=== PATIENT | male | born 1975 | race Caucasian/White ===

== ENCOUNTER 2016-09-19 22:38 | Emergency (ER) | payer OTHER ==
[~2016-09-19] VITALS: Ht 170.2 cm; Wt 89.1 kg
[2016-09-19 22:39] VITALS: BP 124/85
[2016-09-19] MEDS ORDERED: ACETAMINOPHEN 325 MG TABLET PO ONE (23:30)
[2016-09-19] MEDS ORDERED: IBUPROFEN 200 MG TABLET PO ONE (23:30)
== END 2016-09-20 00:12 | disposition home or self-care (01) ==
LOC: ED 23:59
DX: K64.4 Residual hemorrhoidal skin tags (principal)
CPT/HCPCS: 99283

== ENCOUNTER 2018-07-22 12:47 | Emergency (ER) | payer MEDICAID, OTHER ==
[~2018-07-22] VITALS: Ht 170.2 cm; Wt 87.5 kg
[2018-07-22 12:57] VITALS: BP 128/81
== END 2018-07-22 13:56 | disposition home or self-care (01) ==
LOC: ED 13:50
DX: J01.90 Acute sinusitis, unspecified (principal); I10 Essential (primary) hypertension
CPT/HCPCS: 99283

== ENCOUNTER 2019-03-20 13:06 | Emergency (ER) | payer MEDICAID ==
[~2019-03-20] VITALS: Ht 170.2 cm; Wt 86.0 kg
[2019-03-20 13:22] VITALS: BP 105/81
[2019-03-20] MEDS ORDERED: ATOR20TA37 PO (13:38)
[2019-03-20] MEDS ORDERED: METF10007 PO (13:38)
[2019-03-20] MEDS ORDERED: BUPR200T31 PO (13:38)
[2019-03-20] MEDS ORDERED: CIPR500T3 PO (13:38)
--- NOTE | 2019-03-20 13:41 | NUR ---
PT HAS CO OF LEFT EYE SWELLING W REDNESS. PT STATES HE FEELS LIKE THERE IS SOMETHING BEHIND IT. ALSO HAS HEADACHES FOR PAST WEEK. STATES HE WENT TO EYE DR 2 WEEKS AGO FOR SCRATCH IN EYE. MD AT BEDSIDE.
--- NOTE | 2019-03-20 14:04 | NUR ---
LAB AT BEDSIDE. PATIENT RESTING, CALL LIGHT IN REACH.
[2019-03-20 14:13] LABS: BASOPHILS # (AUTO) 0.09 x10^3/uL (0-0.1); BASOPHILS % (AUTO) 1 % (0-1); EOSINOPHILS # (AUTO) 0.13 x10^3/uL (0-0.4); EOSINOPHILS % (AUTO) 2 % (1-7); LYMPHOCYTES # (AUTO) 2.54 x10^3/uL (1-3.4); LYMPHOCYTES % (AUTO) 29 % (22-44); MD NO; MEAN CORPUSCULAR HEMOGLOBIN 30.2 pg (27.5-34.5); MEAN CORPUSCULAR VOLUME 91.6 fL (81-97); MEAN PLATELET VOLUME 7.7 fL (7.4-10.4); MONOCYTES # (AUTO) 0.71 x10^3/uL (0.2-0.8); MONOCYTES % (AUTO) 8 % (2-9); NEUTROPHILS # (AUTO) 5.22 x10^3/uL (1.8-6.8); NEUTROPHILS % (AUTO) 60 % (42-75); PLATELET COUNT 424 x10^3/uL (130-400); RED BLOOD COUNT 5.15 x10^6/uL (4.38-5.82); RED CELL DISTRIBUTION WIDTH 12.8 % (9.4-14.8)
[2019-03-20 14:26] LABS: ALBUMIN 3.8 g/dL (3.4-5.0); ANION GAP 4 mmol/L (5-15); CALCIUM 8.9 mg/dL (8.5-10.1); CHLORIDE 108 mmol/L (98-107)
[2019-03-20 14:27] LABS: CREATININE 1.13 mg/dL (0.7-1.3)
--- NOTE | 2019-03-20 14:52 | NUR ---
DOES PT HAVE IV FOR MAXILLOFACIAL CT WITH CONTRAST?
--- NOTE | 2019-03-20 15:30 | NUR ---
PT BACK FROM CT. WAITING FOR RESULTS
[2019-03-20] MEDS ORDERED: OMNIPAQUE 350 MG/ML, 75ML BOTTLE ONE (15:41)
--- NOTE | 2019-03-20 16:29 | NUR ---
Patient/Caregiver given discharge instructions and they have confirmed that they understand the instructions. Patient ambulatory with steady gait.
== END 2019-03-20 16:31 | disposition home or self-care (01) ==
LOC: ED 15:00
DX: H10.32 Unspecified acute conjunctivitis, left eye (principal); I10 Essential (primary) hypertension
CPT/HCPCS: 36415; 70487; 80048; 82040; 85025; 99284; Q9967